=== PATIENT | female | born 1995 | race African-American/Black ===

== ENCOUNTER 2024-12-07 17:00 | Emergency (ER) | payer MEDICAID ==
[~2024-12-07] VITALS: Ht 172.7 cm; Wt 115.2 kg
[2024-12-07] MEDS ORDERED: TDAP [DIPH/PERTUSSIS/TET] 0.5 ML VIAL IM ONE (18:30)
[2024-12-07] MEDS: TDAP [DIPH/PERTUSSIS/TET] 0.5 ML VIAL IM ONE (18:35)
[2024-12-07 18:45] VITALS: BP 130/74; TEMP 98.8; O2SAT 98
== END 2024-12-07 18:46 | disposition home or self-care (01) ==
LOC: ER 17:11
DX: S61.412A Laceration without foreign body of left hand, initial encounter (principal); Z60.2 Problems related to living alone; W26.0XXA Contact with knife, initial encounter; Y93.89 Activity, other specified; Y92.89 Other specified places as the place of occurrence of the external cause; Y99.8 Other external cause status
CPT/HCPCS: 90715